=== PATIENT | female | born 1970 | race American Indian/Alaskan Native ===

== ENCOUNTER 2019-04-30 13:38 | Emergency (ER) | payer SELFPAY ==
--- NOTE | 2019-04-30 15:34 | Event Note ---
ED Screening Note ED Screening Note: This initial assessment/diagnostic orders/clinical plan/treatment(s) is/are subject to change based on patients health status, clinical progression and re- assessment by fellow clinical providers in the ED. Further treatment and workup at subsequent clinical providers discretion. Patient/guardian urged not to elope from the ED as their condition may be serious if not clinically assessed and managed. Initial orders include: 49yo Bf states that she twisted her L ankle earlier today. She states that wa lking and balancing on her L leg is difficult. She states that her pain is an 8.
--- NOTE | 2019-04-30 16:14 | XRay Report ---
LEFT ANKLE, 3 VIEWS INDICATION: pain. COMPARISON: None. IMPRESSION: No acute osseous or soft tissue abnormality. No significant DJD. Signer Name: Efren Braga Jr, MD Signed: 04/30/2019 4:09 PM Workstation Name: [id number]
[2019-04-30] MEDS ORDERED: IBUPROFEN PO ONE (16:16)
--- NOTE | 2019-04-30 16:48 | XRay Report ---
LEFT TIBIA AND FIBULA 2 VIEWS INDICATION / CLINICAL INFORMATION: Leg pain, fall COMPARISON: None available. FINDINGS: BONES / JOINT(S): No acute fracture or subluxation. No significant arthritis. SOFT TISSUES: No significant abnormality. ADDITIONAL FINDINGS: None. Signer Name: Wes Maher MD Signed: 04/30/2019 4:44 PM Workstation Name: [id number]
--- NOTE | 2019-04-30 17:08 | Emergency Department Report ---
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 She is able to bear some weight but has increased pain with doing so. She did not take anything for her symptoms prior to presentation. No past medical history. ED Past Medical Hx - Past Medical History Previous Medical History?: No - Surgical History Past Surgical History?: No - Social History Smoking Status: Current Every Day Smoker - Medications Home Medications: Home Medications Medication Instructions Recorded Confirmed Last Taken Type Ibuprofen [Motrin 600 MG tab] 600 mg PO Q8H PRN #20 tablet 04/30/19 Unknown Rx ED Review of Systems ROS: Stated complaint: LFT ANKLE PAIN/SWELLING Other details as noted in HPI Comment: All other systems reviewed and negative Constitutional: denies: chills, fever Musculoskeletal: joint swelling, arthralgia. denies: back pain Skin: denies: rash, lesions Neurological: denies: numbness, paresthesias Physical Exam - Physical Exam Vital Signs: Vital Signs 04/30/19 15:20 Temperature 97.4 F L Pulse Rate 110 H Respiratory 18 Rate Blood Pressure 151/95 [Right] O2 Sat by Pulse 99 Oximetry Physical Exam: GENERAL: The patient is well-developed well-nourished. HENT: Normocephalic. Atraumatic. Patient has moist mucous membranes. EYES: Extraocular motions are intact. NECK: Supple. Trachea is midline. ABDOMEN: There is no abdominal distention. SKIN: Mild nonpitting swelling to the left lateral malleolus. NEURO: The patient is awake, alert, and oriented. The patient is cooperative. The patient has no focal neurologic deficits. Normal speech. MUSCULOSKELETAL: There is tenderness to palpation to the left anterior and lateral ankle as well as the distal tib-fib. No obvious deformities. Decreased range of motion of the foot, ankle secondary to pain. +2 over 4 dorsalis pedis pulse. ED Course Vital Signs 04/30/19 15:20 Temperature 97.4 F L Pulse Rate 110 H Respiratory 18 Rate Blood Pressure 151/95 [Right] O2 Sat by Pulse 99 Oximetry ED Medical Decision Making - Radiology Data Radiology results: image reviewed interpreted by me: X-ray of the left ankle and tib-fib do not show any fractures, dislocations, or any acute processes. - Medical Decision Making Patient rolled her foot and ankle prior to presentation. She has some pain and some mild swelling. X-rays were done of the ankle and the tib-fib that did not show any fracture, dislocation, or any acute process. She will be nonweightbearing on crutches, given an ankle splint and referrals for orthopedics. She will return to the ER with any worsening of her symptoms or any acute distress. - Differential Diagnosis ankle sprain, ankle fracture, ligament tear Critical Care Time: No Critical care attestation.: If time is entered above; I have spent that time in minutes in the direct care o f this critically ill patient, excluding procedure time. ED Disposition Clinical Impression: Left ankle sprain Qualifiers: Encounter type: initial encounter Involved ligament of ankle: unspecified ligament Qualified Code(s): S93.402A - Sprain of unspecified ligament of left ankle, initial encounter Disposition: TO HOME OR SELFCARE Is pt being admited?: No Condition: Stable Instructions: Ankle Sprain (ED) Additional Instructions: Please follow-up with a primary care physician in the next few days. I am giving you a referral for a local orthopedist, Dr. Lam, to follow up regarding your ankle and leg pain. Return to the emergency Department with any worsening of your symptoms or any acute distress. Prescriptions: Ibuprofen [Motrin 600 MG tab] 600 mg PO Q8H PRN #20 tablet PRN Reason: Pain Referrals: KHUSHBU LAM MD [Staff Physician] - 3-5 Days Time of Disposition: 17:08
[2019-04-30 17:47] VITALS: BP 146/90
== END 2019-04-30 17:45 | disposition home or self-care (01) ==
LOC: ED 13:38
DX: S93.402A Sprain of unspecified ligament of left ankle, initial encounter (principal); X50.1XXA Overexertion from prolonged static or awkward postures, initial encounter; Y93.89 Activity, other specified; Y92.89 Other specified places as the place of occurrence of the external cause; Y99.8 Other external cause status